=== PATIENT | male | born 1965 | race Caucasian/White ===

== ENCOUNTER 2017-04-28 01:20 | Emergency (ER) | payer SELFPAY ==
[~2017-04-28] VITALS: Ht 175.3 cm; Wt 76.8 kg
[2017-04-28 01:25] VITALS: BP 156/83; PULSE 85; RESP 16; TEMP 98; O2SAT 97
[2017-04-28] MEDS ORDERED: LIDOCAINE 2%/EPINEPHrine 1:100,000 30ML MDV INFIL ONE (02:00)
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
[2017-04-28] MEDS ORDERED: TETANUS/DIPHTHERIA TOXOID ADULT 0.5 ML VIAL IM ONE (03:00)
[2017-04-28 03:11] VITALS: BP 142/74
== END 2017-04-28 03:17 | disposition home or self-care (01) ==
LOC: PHED 01:20
DX: S01.01XA Laceration without foreign body of scalp, initial encounter (principal); W06.XXXA Fall from bed, initial encounter; F17.210 Nicotine dependence, cigarettes, uncomplicated; Z23 Encounter for immunization
CPT/HCPCS: 12004; 90471; 90714

== ENCOUNTER 2017-05-10 11:31 | Emergency (ER) | payer SELFPAY ==
[~2017-05-10] VITALS: Ht 175.3 cm; Wt 80.3 kg
[2017-05-10 11:47] VITALS: BP 134/85; PULSE 73; RESP 16; TEMP 98.1; O2SAT 98
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
== END 2017-05-10 12:17 | disposition home or self-care (01) ==
LOC: PHEFT 11:31
DX: Z48.02 Encounter for removal of sutures (principal)
CPT/HCPCS: 99281